=== PATIENT | male | born 1960 | race Caucasian/White ===

== ENCOUNTER 2018-07-07 06:28 | Day surgery (SDC) | payer MEDICAID ==
[2018-07-07] MEDS ORDERED: PROPOFOL 10 MG/ML VIAL IV ONE (06:29)
[2018-07-07] MEDS ORDERED: LIDOCAINE 2% MDV (20MG/ML) 20ML VIAL IV ONE (06:29)
--- NOTE | 2018-07-07 17:50 | Operative Note ---
DATE OF SURGERY: 07/07/2018 OPERATION: COLONOSCOPY with cold snare polypectomy. PREOPERATIVE DIAGNOSIS: Personal history of colon polyps. POSTOPERATIVE DIAGNOSES: 1. Fair prep. 2. Sigmoid polyp. ESTIMATED BLOOD LOSS: Minimum. SPECIMENS: Sigmoid colon polyp. COMPLICATIONS: None apparent. PROCEDURE: After informed consent was obtained from the patient, he was placed in the left lateral decubitus position in the endoscopy suite, sedated and monitored by the department of anesthesia. Once sedated, a digital rectal exam was performed which was unremarkable. A well-lubricated [id number] colonoscope was inserted into the rectum and advanced to the cecum. Preparation quality was fair. The cecum, cecal bulb, and ileocecal valve were inspected. Numerous areas were lavaged. Fluid and stool removed. The cecum, ascending colon, transverse colon, and descending colon were unremarkable. The sigmoid colon did reveal a 5 mm sessile polyp removed with a cold snare. Minimal bleeding was noted at the site when the polyp was removed and retrieved. The rectum was unremarkable in forward and J-turn views. The endoscope was straightened, the rectal ampulla deflated, and the endoscope was removed. RECOMMENDATIONS: I suggest the patient resume his medications and diet. Based on his prep quality, I would recommend a repeat exam in 3 years. As always, thank you for allowing me to participate in the healthcare of your patients. CC: PEDRO Hicks
== END 2018-07-07 08:26 | disposition home or self-care (01) ==
LOC: HOP 06:28
PROVIDERS: ATTEND Internal Medicine Gastroenterology
DX: Z12.11 Encounter for screening for malignant neoplasm of colon (principal); Z86.010 Personal history of colon polyps; D12.5 Benign neoplasm of sigmoid colon; K51.90 Ulcerative colitis, unspecified, without complications; I10 Essential (primary) hypertension; E78.00 Pure hypercholesterolemia, unspecified; K21.9 Gastro-esophageal reflux disease without esophagitis